=== PATIENT | male | born 1955 | race Caucasian/White ===

== ENCOUNTER → 2025-02-14 14:38 | Outpatient (REF) | payer MEDICARE, OTHER, SELFPAY | LOC: MRI 3T 14:38 | PROVIDERS: ATTENDING PHYSICIAN Specialist; FAMILY PHYSICIAN Family Medicine | DX: R97.20 Elevated prostate specific antigen [PSA] (principal) | CPT/HCPCS: 72197; A9585 ==

== ENCOUNTER → 2025-03-10 06:46 | Outpatient (REF) | payer MEDICARE, OTHER, SELFPAY ==
[2025-03-10 09:11] LABS: Hematocrit 45.5 % (39.0-52.0); Hemoglobin 15.2 g/dL (13.0-18.0); Mean Corp Hgb Conc. 33.4 g/dL (33.0-37.0); Mean Corpuscular Volume 85.8 fL (80.0-94.0); Platelet Count 391 10^3/uL (130-400); Red Cell Dist. Width 12.3 % (11.5-14.5)
[2025-03-10 09:54] LABS: Blood Urea Nitrogen 21 mg/dl (9-20); Calcium 9.6 mg/dl (8.4-10.2); Carbon Dioxide 29 mmol/L (22-30); Chloride 100 mmol/L (98-107); Glucose 139 mg/dl (70-99); Potassium 5.6 mmol/L (3.5-5.1); Sodium 135 mmol/L (135-145); eGFR > 60.00
== END ==
LOC: SDSPAT 06:46
PROVIDERS: ATTENDING PHYSICIAN Specialist
DX: Z01.818 Encounter for other preprocedural examination (principal)
CPT/HCPCS: 80048; 85027; 93005

== ENCOUNTER 2025-03-16 06:09 | Day surgery (SDC) | payer MEDICARE, OTHER, SELFPAY ==
[2025-03-10 13:13] VITALS: BMI 37.9
--- NOTE | 2025-03-14 09:47 | PTCARENOTE ---
K+ 5.6 collected on 03/10/25; Marce at 's office was notified.
--- NOTE | 2025-03-14 14:34 | PTCARENOTE ---
Abn K+ 5.6 collected 03/10/25, to be repeated at bedside, reviewed by Dr Sigala, no further interventions requested.
[2025-03-16] VITALS (8 sets, daily range): BP systolic 123–128; BP diastolic 64–83; BMI 37.9
[2025-03-16 07:04] LABS: Glucose - Point of Care 141 mg/dl (70-99)
[2025-03-16] MEDS: NEBCIN 480 MG/100 ML ENEMA 1 BOTTLE RECTAL (07:08)
[2025-03-16] MEDS: NORMOSOL-R/PLASMALYTE-A 1000 IV (07:08)
[2025-03-16 07:43] LABS: Potassium 4.2 mmol/L (3.5-5.1)
[2025-03-16 09:37] LABS: Glucose - Point of Care 153 mg/dl (70-99)
== END 2025-03-16 09:59 | disposition home or self-care (01) ==
LOC: SDS 06:09
PROVIDERS: ATTENDING PHYSICIAN Specialist
DX: C61 Malignant neoplasm of prostate (principal)
CPT/HCPCS: 55700; 76998; 82962; 84132; 88305; 88344

== ENCOUNTER → 2025-03-24 08:26 | Outpatient (REF) | payer MEDICARE, OTHER, SELFPAY | LOC: HWRAD 08:26 | PROVIDERS: ATTENDING PHYSICIAN Internal Medicine Pulmonary Disease; FAMILY PHYSICIAN Family Medicine | DX: R91.1 Solitary pulmonary nodule (principal) | CPT/HCPCS: 71250 ==